=== PATIENT | female | born 1990 | race African-American/Black ===

== ENCOUNTER 2022-05-28 14:26 | Inpatient (IN) ==
[2022-05-28] MEDS ORDERED: TRANEXAMIC ACID 1,000 MG in SODIUM CHLORIDE 0.9% 100 ML IV PRN (15:54)
[2022-05-28] MEDS ORDERED: CARBOPROST TROMETHAMINE 250 MCG/ML AMP IM PRN (15:54)
[2022-05-28] MEDS ORDERED: BUTORPHANOL 2 MG/ML VIAL IV PRN (15:54)
[2022-05-28] MEDS ORDERED: METHYLERGONOVINE 0.2 MG/1 ML AMP IM PRN (15:54)
[2022-05-28] MEDS ORDERED: OXYTOCIN/LR 20 UNIT/1,000 ML BAG IV ONE (15:54)
[2022-05-28] MEDS ORDERED: miSOPROStoL 200 MCG TABLET RECTAL PRN (15:54)
[2022-05-28] MEDS ORDERED: MEPERIDINE 50 MG/1 ML VIAL IV PRN (15:54)
[2022-05-28 16:20] LABS: Basophils % 0.3 % (0.0-0.8); Eosinophils # 0.4 10*3/uL (0.0-0.87); Eosinophils % 4.1 % (0.00-10.9); Hematocrit 32.6 VOL% (35.7-47.0); Hemoglobin 10.6 GM/DL (12.0-16.0); Immature Granulocytes Absolute 0.09 #; Lymphocytes # 1.6 10*3/uL (1.4-4.0); Lymphocytes % 16.7 % (21.3-54.2); Mean Corpuscular HGB Conc 32.5 GM/DL (32-36); Mean Corpuscular Volume 83.4 FL (87-102); Mean Platelet Volume 9.7 FL (9.6-12.0); Monocytes # 0.6 10*3/uL (0.11-0.8); Monocytes % 6.4 % (1.7-12.7); Neutrophils % 71.5 % (38.7-73.9); Platelet Count 198 T/CUMM (130-400); Red Blood Count 3.91 MC/CUMM (3.8-5.5); Red Cell Distribution Width 12.9 % (9.3-17.3); White Blood Count 9.3 T/CUMM (4-12)
[2022-05-28] MEDS: AMPICILLIN INJ 2,000 MG in SODIUM CHLORIDE 0.9% 100 ML IV SCH ×2 (16:45→22:31)
[2022-05-28] MEDS: BETAMETH SODIUM PHOS/ACETATE 30 MG/5 ML VIAL IM SCH (16:45)
[2022-05-28 16:53] LABS: Alanine Aminotransferase 11 U/L (13-56); Albumin 2.5 G/DL (3.4-5.0); Alkaline Phosphatase 139 U/L (45-117); Aspartate Amino Transferase 18 U/L (0-37); Bilirubin,Total < 0.39 MG/DL (0.20-1.00); Blood Urea Nitrogen 3 MG/DL (7-18); Calcium 8.5 MG/DL (8.5-10.1); Carbon Dioxide 24 MMOL/L (21-32); Chloride 107 MMOL/L (98-107); Glucose 97 MG/DL (74-106); Osmolality,Calculated 269.8 MOS/KG (273-304); Potassium 4.1 MMOL/L (3.5-5.1); Sodium 137 MMOL/L (136-145); Total Protein 6.1 G/DL (6.4-8.2)
[2022-05-29] MEDS: ALUMINUM/MAGNES/SIMETH MAX STR 30 ML UDCUP PO PRN ×4 (01:16→22:40)
[2022-05-29] MEDS: AMPICILLIN INJ 2,000 MG in SODIUM CHLORIDE 0.9% 100 ML IV SCH ×4 (04:14→22:40)
[2022-05-29 06:00] LABS: Basophils % 0.1 % (0.0-0.8); Eosinophils % 0.1 % (0.00-10.9); Hematocrit 32.4 VOL% (35.7-47.0); Hemoglobin 10.5 GM/DL (12.0-16.0); Immature Granulocytes % 1.1 %; Immature Granulocytes Absolute 0.11 #; Lymphocytes # 1.1 10*3/uL (1.4-4.0); Lymphocytes % 10.3 % (21.3-54.2); Mean Corpuscular HGB Conc 32.4 GM/DL (32-36); Mean Corpuscular Volume 83.5 FL (87-102); Mean Platelet Volume 9.3 FL (9.6-12.0); Monocytes # 0.2 10*3/uL (0.11-0.8); Monocytes % 2.2 % (1.7-12.7); Neutrophils % 86.2 % (38.7-73.9); Platelet Count 222 T/CUMM (130-400); Red Blood Count 3.88 MC/CUMM (3.8-5.5); Red Cell Distribution Width 12.5 % (9.3-17.3); White Blood Count 10.4 T/CUMM (4-12)
[2022-05-29] MEDS: LACTATED RINGERS 1,000 ML IV SCH ×2 (08:20→16:42)
[2022-05-29] MEDS: BETAMETH SODIUM PHOS/ACETATE 30 MG/5 ML VIAL IM SCH ×2 (09:22→16:42)
[2022-05-30] MEDS: ONDANSETRON 4 MG/2 ML VIAL IV PRN ×2 (00:51→10:21)
[2022-05-30] MEDS: LACTATED RINGERS 1,000 ML IV SCH ×3 (01:26→11:26)
[2022-05-30] MEDS: AMPICILLIN INJ 2,000 MG in SODIUM CHLORIDE 0.9% 100 ML IV SCH (04:49)
[2022-05-30 06:09] LABS: Basophils % 0.1 % (0.0-0.8); Hematocrit 29.9 VOL% (35.7-47.0); Hemoglobin 9.6 GM/DL (12.0-16.0); Immature Granulocytes Absolute 0.15 #; Lymphocytes # 1.3 10*3/uL (1.4-4.0); Lymphocytes % 8.4 % (21.3-54.2); Mean Corpuscular HGB Conc 32.1 GM/DL (32-36); Mean Corpuscular Volume 85.4 FL (87-102); Mean Platelet Volume 9.7 FL (9.6-12.0); Monocytes # 0.6 10*3/uL (0.11-0.8); Neutrophils % 86.5 % (38.7-73.9); Platelet Count 236 T/CUMM (130-400); Red Cell Distribution Width 12.7 % (9.3-17.3); White Blood Count 15.6 T/CUMM (4-12)
[2022-05-30] MEDS ORDERED: OXYTOCIN/LR 20 UNIT/1,000 ML BAG IV ONE ×2 (08:36→15:40)
[2022-05-30] MEDS ORDERED: OXYTOCIN/LR 20 UNIT/1,000 ML BAG IV SCH (09:00)
[2022-05-30] MEDS ORDERED: AMPICILLIN INJ 2,000 MG in SODIUM CHLORIDE 0.9% 100 ML IV SCH (10:30)
[2022-05-30] MEDS ORDERED: PROMETHAZINE 25 MG/1 ML VIAL IM PRN (10:32)
[2022-05-30] MEDS ORDERED: diphenhydrAMINE 50 MG/1 ML VIAL IV PRN (10:32)
[2022-05-30] MEDS ORDERED: CITRIC ACID/SODIUM CITRATE 30 ML UDCUP PO ONE (10:32)
[2022-05-30] MEDS ORDERED: NALOXONE 0.4 MG/ML VIAL IV PRN (10:32)
[2022-05-30] MEDS ORDERED: FAMOTIDINE 20 MG/2 ML VIAL IV ONE (10:32)
[2022-05-30] MEDS ORDERED: hydrOXYzine HCL 25 MG/1 ML VIAL IM PRN (10:32)
[2022-05-30] MEDS ORDERED: ePHEDrine 50 MG/ML VIAL IV PRN (10:32)
[2022-05-30] MEDS ORDERED: fentaNYL 2 MCG/ROPIV 0.2% EPID 100 ML EPIDURAL SCH (11:00)
[2022-05-30 12:13] LABS: RBC,Urine <1 /HPF (0-4); Squamous Epithelial Cell,Urine Occasional /HPF (0-10)
[2022-05-30 12:14] LABS: Bilirubin,Urine Negative (Negative); Blood, Urine Trace mg/dL (Negative); Glucose,Urine (UA) Negative (Negative); Ketones,Urine 15 mg/dL (Negative); Nitrite,Urine Negative (Negative); Protein,Urine Negative (Negative); Urine Appearance Clear (Clear); Urine Color Yellow (Yellow); Urine Urobilinogen 0.2 eU/dL (<2.0)
[2022-05-30] MEDS ORDERED: RHO(D) IMMUNE GLOBULIN 300 MCG SYRINGE IM ONE (15:40)
[2022-05-30] MEDS ORDERED: MEASLES/MUMPS/RUBELLA VACCINE 0.5 ML VIAL SUBCUT ONE (15:40)
[2022-05-30] MEDS ORDERED: oxyCODONE/ACETAMINOPHEN 5-325 MG TABLET PO PRN (15:40)
[2022-05-30] MEDS ORDERED: HYDROCORTISONE 2.5% RECTAL CREAM 30 GM TUBE TOP PRN (15:40)
[2022-05-30] MEDS ORDERED: LANOLIN 50% CREAM 0.3 OZ TUBE TOP PRN (15:40)
[2022-05-30] MEDS ORDERED: WITCH HAZEL PADS 100/JAR TOP PRN (15:40)
[2022-05-30] MEDS ORDERED: BENZOCAINE 20%/MENTHOL 0.5% SPRAY 56 GM CAN TOP PRN (15:40)
[2022-05-30] MEDS ORDERED: ONDANSETRON 4 MG/2 ML VIAL IV PRN (15:40)
[2022-05-30] MEDS ORDERED: ACETAMINOPHEN 325 MG TABLET PO PRN (15:40)
[2022-05-30] MEDS ORDERED: DIPH/TET/ACEL PERT BOOSTER VACCINE 0.5 ML VIAL IM ONE (15:40)
[2022-05-30] MEDS ORDERED: BISACODYL 10 MG SUPP RECTAL PRN (15:40)
[2022-05-30 15:41] LABS: Cord Arterial Blood HCO3 23.2 MMOL/L
[2022-05-30 15:46] LABS: Cord Venous Blood HCO3 23.5 MMOL/L; Cord Venous Blood PCO2 49.2 MMHG; Cord Venous Blood PO2 21.4
[2022-05-30] MEDS ORDERED: TRANEXAMIC ACID 1,000 MG/10 ML VIAL ONE (15:47)
[2022-05-30] MEDS: DOCUSATE SODIUM 100 MG CAPSULE PO SCH (20:50)
[2022-05-30] MEDS: oxyCODONE/ACETAMINOPHEN 5-325 MG TABLET PO PRN (22:34)
[2022-05-31 06:06] LABS: Basophils % 0.1 % (0.0-0.8); Eosinophils % 0.1 % (0.00-10.9); Hematocrit 29.6 VOL% (35.7-47.0); Hemoglobin 9.3 GM/DL (12.0-16.0); Immature Granulocytes % 0.8 %; Immature Granulocytes Absolute 0.11 #; Lymphocytes # 1.8 10*3/uL (1.4-4.0); Lymphocytes % 12.6 % (21.3-54.2); Mean Corpuscular HGB Conc 31.4 GM/DL (32-36); Mean Corpuscular Volume 85.3 FL (87-102); Mean Platelet Volume 9.8 FL (9.6-12.0); Monocytes # 0.7 10*3/uL (0.11-0.8); Monocytes % 5.1 % (1.7-12.7); Neutrophils % 81.3 % (38.7-73.9); Platelet Count 213 T/CUMM (130-400); Red Blood Count 3.47 MC/CUMM (3.8-5.5); White Blood Count 13.9 T/CUMM (4-12)
[2022-05-31] MEDS: DOCUSATE SODIUM 100 MG CAPSULE PO SCH ×2 (08:37→19:35)
[2022-05-31] MEDS: IBUPROFEN 800 MG TABLET PO PRN ×2 (08:39→19:35)
[2022-05-31] MEDS: oxyCODONE/ACETAMINOPHEN 5-325 MG TABLET PO PRN (11:52)
[2022-06-01] MEDS: oxyCODONE/ACETAMINOPHEN 5-325 MG TABLET PO PRN ×2 (01:18→08:22)
[2022-06-01] MEDS: DOCUSATE SODIUM 100 MG CAPSULE PO SCH ×2 (02:06→08:20)
[2022-06-01 08:03] VITALS: BP 111/69
[2022-06-01] MEDS: IBUPROFEN 800 MG TABLET PO PRN (08:23)
[2022-06-01] MEDS ORDERED: FERROUS SULFATE 325 MG TABLET PO SCH (09:00)
== END 2022-06-01 18:30 | disposition home or self-care (01) | DRG 560 ==
LOC: N.LDOUT 14:26 → N.LD 14:29 → N.OB 05-30 17:15
PROVIDERS: ADMIT Obstetrics & Gynecology; ATTEND Obstetrics & Gynecology